=== PATIENT | female | born 1990 | race Caucasian/White ===

== ENCOUNTER 2022-06-25 15:09 | Emergency (ER) | payer BC ==
[~2022-06-25] VITALS: Ht 158.8 cm; Wt 61.8 kg
[~2022-06-25 15:09] MED LIST: IBUP-1985 PO; ONDA4TAB12 PO; TAMS0.4C32 PO
[2022-06-25 15:24] VITALS: BP 133/80
[2022-06-25] MEDS ORDERED: AMOX-580 PO (15:34)
[2022-06-25] MEDS ORDERED: PRED20TA PO (15:34)
== END 2022-06-25 15:44 | disposition home or self-care (01) ==
LOC: ER 15:09
DX: R21 Rash and other nonspecific skin eruption (principal)
CPT/HCPCS: 99283